=== PATIENT | male | born 1985 | race Caucasian/White ===

== ENCOUNTER 2021-09-04 03:47 | Emergency (ER) | payer OTHER, SELFPAY ==
--- NOTE | ~2021-09-04 | CT_ITS ---
EXAMINATION: CT HEAD WITHOUT CONTRAST CLINICAL INFORMATION: First seizure COMPARISON: None TECHNIQUE: Contiguous axial imaging was performed from the skull base to vertex without intravenous administration of contrast. This CT examination was performed using dose optimization techniques as appropriate, variously including the following: *Automated exposure control *Adjustment of mA and/or kV according to patient size (this includes techniques or standardized protocols for targeted exams where dose is matched to indication/reason for exam; i.e. extremities or head) *Use of iterative reconstruction technique DLP: 739 mGy-cm FINDINGS: There is no evidence of acute intracranial hemorrhage or territorial infarction. No abnormal mass effect or midline shift is seen. Garcia to white matter differentiation is well preserved. No extra-axial fluid collections are identified. The ventricles are normal in size. There is no abnormal attenuation within the brain parenchyma. Pilomatricomas within the right frontal parasagittal and suboccipital scalp.. The mastoid air cells and visualized portions of the paranasal sinuses are well aerated. CT/CT head/brain wo con IMPRESSION: No acute intracranial pathology. No intracranial mass is evident.
--- NOTE | 2021-09-04 03:52 | ED.SEIZURE ---
HPI - Seizure General Chief Complaint: Seizure Stated Complaint: seizure Time Seen by Provider: 09/04/21 03:52 Source: EMS Mode of arrival: EMS Limitations: no limitations History of Present Illness HPI Narrative: According to EMS he was violently shaking his arms and could not be woken up according to his . EMS found him tachycardic, diaphoretic, and agitated MD complaint: seizure Onset (ago): minute(s) Description of Episode: loss of consciousness and tonic-clonic movement Witnessed: Yes - by Other () Associated symptoms: confusion Related Data Allergies Allergy/AdvReac Type Severity Reaction Status Date / Time No Known Allergies Allergy Verified 09/04/21 03:58 Review of Systems Constitutional: Constitutional: Reports no additional constitutional complaints Eyes: Eyes: Reports no additional eye complaints ENT: Denies dizziness Cardiovascular: Cardiovascular: Reports no additional cardiovascular complaints Respiratory: Respiratory: Reports as per HPI Gastrointestinal: Gastrointestinal: Reports no additional gastrointestinal complaints Musculoskeletal: Musculoskeletal: Reports no additional musculoskeletal complaints Integumentary/Breasts: Skin/Breast: Denies rash Neurologic: Reports system reviewed and no additional complaints, except as documented, Denies dizziness and Denies Sensory deficit (Neuro) Psychiatric: Psychiatric: Denies anxiety Physical Exam Vital Signs: Vital Signs: Last Vital Signs Temp 98.6 F 09/04/21 03:53 Pulse 88 09/04/21 03:53 Resp 20 09/04/21 03:53 BP 125/87 09/04/21 03:53 Pulse Ox 95 09/04/21 03:53 O2 Del Method 09/04/21 03:53 BMI result Body Mass Index 39.1 Const: General: healthy appearing Nutritional Appearance: average body habitus Orientation/consciousness: oriented to person and patient oriented x3 Limitations: no limitations HEENT: Head: Yes normal to inspection Ears: external ears normal General nose exam: Normal external nose present Mouth: Normal oral and palatal mucosa present and oropharynx normal Throat: Yes posterior oropharynx normal Eyes: General: appearance normal, both eyes and all related structures Neck: Other: supple Neck: Yes normal visual inspection Chest: Chest palpation & inspection: normal inspection of the chest Resp: Auscultation: clear to auscultation bilaterally Cardio: Jugular venous distension: no JVD Rate: regular rate Rhythm: regular rhythm Heart sounds: S1 normal heart sound present and S2 normal heart sound present GI: Inspection: Yes normal to inspection Palpation (GI): Soft to palpation, nontender and No hepatosplenomegaly present Auscultation: normal bowel sounds : General: Yes no CVA tenderness Back/Spine/Pelvis: Back: no CVA tenderness Skin: General skin exam: no rashes or lesions noted Neuro: General: oriented to person and patient oriented x3 Cranial nerves: Yes CN's II-XII intact bilaterally Motor exam (neuro): 5/5 motor strength present throughout Sensory Exam: No Sensory deficit (Neuro) Extrem: General: Yes normal to inspection Psych: Appearance: grossly normal Course Reevaluation(s) Reevaluation #1: Patient with first seizure with negative work up, will not start seizure medication at this time, will discharge with follow up Time: 05:58 MDM - Seizure Lab Data Result diagrams: 09/04/21 04:09 09/04/21 04:09 Labs: Lab Results 09/04/21 09/04/21 09/04/21 Range/Units 04:09 04:09 04:09 WBC 8.4 (4.8-10.8) X10*3/uL RBC 4.77 (4.60-5.80) X10*6/uL Hgb 15.5 (14.0-18.0) g/dl Hct 45.5 (42.0-52.0) % MCV 95.4 (80.0-98.0) fL MCH 32.5 (27.0-33.0) pg MCHC 34.1 (31.0-36.0) g/dl RDW 12.4 (11.0-16.0) % Plt Count 226 (160-400) X10*3/uL MPV 11.0 (9.4-12.4) fL Immature Gran % (Auto) 1.4 H (0.0-0.4) % Neut % (Auto) 59.1 (45-73) % Lymph % (Auto) 30.2 (20-40) % [place] % (Auto) 6.2 (2-11) % Eos % (Auto) 2.7 (0-4) % Baso % (Auto) 0.4 (0-2) % Lymph # (Auto) 2.5 (1.2-4.9) X10*3/uL [place] # (Auto) 0.5 (0.1-1.2) X10*3/uL Eos # (Auto) 0.2 (0.0-0.4) X10*3/uL Baso # (Auto) 0.0 (0.0-0.2) X10*3/uL Abs Immat Gran (auto) 0.12 H (0.00-0.03) X10*3/uL Absolute Neuts (auto) 5.0 (2.0-8.3) x10*3/uL Absolute Nucleated RBC 0.000 (0.0-0.012) X10*3/uL Nucleated RBC % (auto) 0.0 (0.0-0.2) /100WBC Sodium 140 (135-145) mmol/L Potassium 3.4 (3.3-5.1) mmol/L Chloride 105 (96-108) mmol/L Carbon Dioxide 25 (22-29) mmol/L Anion Gap 13 (12-20) BUN 11 (9-16) mg/dL Creatinine 1.00 (0.5-1.4) mg/dL Estim Creat Clear Calc 120.4 Estimated GFR > 60 Random Glucose 102 (60-115) mg/dL Calcium 9.6 (8.4-10.2) mg/dL Ethyl Alcohol < 10 mg/dL Imaging Data CT scan - head: Radiologist's impression: FINDINGS: There is no evidence of acute intracranial hemorrhage or territorial infarction. No abnormal mass effect or midline shift is seen. Garcia to white matter differentiation is well preserved. No extra-axial fluid collections are identified. The ventricles are normal in size. There is no abnormal attenuation within the brain parenchyma. Pilomatricomas within the right frontal parasagittal and suboccipital scalp.. The mastoid air cells and visualized portions of the paranasal sinuses are well aerated. ? CT/CT head/brain wo con IMPRESSION: No acute intracranial pathology. No intracranial mass is evident. ECG Data Attestation: I personally reviewed and interpreted this ECG as follows: Interpretation: normal sinus rate of 80, no st or twave changes Discharge Plan Discharge Clinical Impression: Generalized seizure Patient Disposition: Home, Self-Care Instructions: Nonepileptic Seizures (ED) Referrals: Physician,Unknown J [Primary Care Provider] - 1 week
[2021-09-04 03:53] VITALS: BP 125/87; BP 136/99; PULSE 88; PULSE 90; RESP 20; TEMP 37; O2SAT 95; O2SAT 96; BMI 39.1
--- NOTE | 2021-09-04 03:55 | ECG_ITS ---
Test Reason : SEIZURE Blood Pressure : / mmHG Vent. Rate : 083 BPM Atrial Rate : 083 BPM P-R Int : 168 ms QRS Dur : 084 ms QT Int : 362 ms P-R-T Axes : 025 -15 009 degrees QTc Int : 425 ms Normal sinus rhythm Normal ECG No previous ECGs available Referred By: Ra Posey Electronically Signed By:Dangelo Wilson
[2021-09-04 04:14] LABS: MANUAL DIFF FLAG NO
[2021-09-04 04:15] LABS: Basophils Percent Auto 0.4 % (0-2); Eosinophils Absolute Auto 0.2 X10*3/uL (0.0-0.4); Eosinophils Percent Auto 2.7 % (0-4); Hematocrit 45.5 % (42.0-52.0); Hemoglobin 15.5 g/dl (14.0-18.0); Imm Gran Abs Auto 0.12 X10*3/uL (0.00-0.03); Imm Gran Pct Auto 1.4 % (0.0-0.4); Lymphocytes Absolute Auto 2.5 X10*3/uL (1.2-4.9); Lymphocytes Percent Auto 30.2 % (20-40); Mean Corpuscular HGB Conc 34.1 g/dl (31.0-36.0); Mean Corpuscular Hemoglobin 32.5 pg (27.0-33.0); Mean Corpuscular Volume 95.4 fL (80.0-98.0); Monocytes Absolute Auto 0.5 X10*3/uL (0.1-1.2); Monocytes Percent Auto 6.2 % (2-11); Neutrophils Percent Auto 59.1 % (45-73); Platelet Count 226 X10*3/uL (160-400); Red Blood Count 4.77 X10*6/uL (4.60-5.80); Red Cell Distribution Width 12.4 % (11.0-16.0); White Blood Count 8.4 X10*3/uL (4.8-10.8)
[2021-09-04 04:29] LABS: Ethanol < 10 mg/dL
[2021-09-04 04:32] LABS: Anion Gap 13 (12-20); Blood Urea Nitrogen 11 mg/dL (9-16); Calcium 9.6 mg/dL (8.4-10.2); Carbon Dioxide 25 mmol/L (22-29); Chloride 105 mmol/L (96-108); Creatinine Clr Calc Pharmacy 120.4; Estimated Glomerular Filt Rate > 60; Glucose Random 102 mg/dL (60-115); Potassium 3.4 mmol/L (3.3-5.1); Sodium 140 mmol/L (135-145)
[2021-09-04 06:15] VITALS: BP 124/75; PULSE 73; RESP 18; TEMP 36.6; O2SAT 95
== END 2021-09-04 06:20 | disposition home or self-care (01) ==
LOC: HO.ED 06:13
PROVIDERS: Emergency Provider Emergency Medicine
DX: G40.409 Other generalized epilepsy and epileptic syndromes, not intractable, without status epilepticus (principal); R00.0 Tachycardia, unspecified; R45.1 Restlessness and agitation
CPT/HCPCS: 36415; 70450; 80048; 82077; 85025; 93005; 99284

== ENCOUNTER 2021-10-28 02:29 | Emergency (ER) | payer OTHER, SELFPAY ==
--- NOTE | ~2021-10-28 | CT_ITS ---
Examination: CT shoulder LT wo con Indication: Possible dislocation Comparison: Plain films of the shoulder earlier today Technique: Multiple serial thin slice helical CT scan images through the left shoulder were obtained. Soft tissue and bony algorithms were performed. Coronal and sagittal reformatted images were then obtained on the technologist workstation. Contrast was not utilized DLP [address] examination was performed using dose optimization techniques as appropriate, variously including the following: *Automated exposure control *Adjustment of mA and/or kV according to patient size (this includes techniques or standardized protocols for targeted exams where dose is matched to indication/reason for exam; i.e. extremities or head) *Use of iterative reconstruction technique Findings: Slightly comminuted fracture of the anterior left humeral head identified. Fracture fragment is displaced somewhat anteriorly and inferiorly. The configuration could represent sequela of a reverse Hill-Sachs injury. The humeral head is otherwise currently well seated within the glenoid fossa with no persistent dislocation. No other fracture seen. Visualized left ribs are unremarkable. CT/CT shoulder LT wo con Impression: Comminuted fracture involving the anterior medial aspect of the humeral head. The configuration is somewhat unusual and could represent sequela of a reverse bony thorax injury in the setting of a previous posterior dislocation. The posterior labrum is not able to be assessed on the CT scan to assess for posterior Bankart type injury. I do not appreciate any residual dislocation at this time and the humeral head itself is now well seated within the glenoid fossa.
--- NOTE | ~2021-10-28 | XR_ITS ---
EXAMINATION: XR SHOULDER, LEFT CLINICAL INFORMATION: Trauma COMPARISON: None TECHNIQUE: Three views of the left shoulder. FINDINGS: No dislocation is evident. There appears to be a Hill-Sachs deformity. There is some calcification seen about the inferior aspect of the surgical neck and a nondisplaced impacted fracture is not excluded. XR/XR shoulder LT min 2V IMPRESSION: Question nondisplaced fracture proximal left humerus which would be age-indeterminate. Question previous dislocation with Hill-Sachs deformity.
[2021-10-28 02:46] VITALS: BP 142/96; BP 151/112; PULSE 102; PULSE 98; RESP 18; TEMP 36.3; O2SAT 94; O2SAT 95; BMI 39.1
[2021-10-28 02:55] VITALS: BP 168/98; PULSE 102; RESP 18; O2SAT 95
--- NOTE | 2021-10-28 06:49 | ED_ITS ---
HPI - Extremity Problem General Chief complaint: Extremity Injury, Upper Stated complaint: Seizure Time Seen by Provider: 10/28/21 06:45 History of Present Illness HPI Narrative: pt presented after seizure c/o left shoulder pain,he was sen in our ED 09/04 with first seizure and negative w/u.Seizure last 1 minute no post ictal at this time MD Complaint: extremity pain Onset (ago): hour(s) (4) Pain Consistency: constant Location: left and upper extremity Quality: aching Radiation: proximal Relieving factors: movement Exacerbating factors: range of motion Associated symptoms: denies other symptoms Related Data Previous Rx's Medication Instructions Recorded levetiracetam 500 mg tablet 500 mg PO BID #60 tabs 10/28/21 (Keppra) oxycodone 5 mg capsule 5 mg PO Q8H PRN pain #12 caps 10/28/21 oxycodone 5 mg tablet 5 mg PO Q6H PRN pain #12 tabs 10/28/21 Allergies Allergy/AdvReac Type Severity Reaction Status Date / Time No Known Allergies Allergy Verified 09/04/21 03:58 Review of Systems Review of Systems: Yes all other systems are reviewed and are negative Constitutional: Constitutional: Reports no additional constitutional complaints ENT: Reports system reviewed and no additional complaints, except as documented Gastrointestinal: Gastrointestinal: Reports no additional gastrointestinal complaints PMFSH Social History Social History Alcohol intake: current Alcohol intake frequency: 0-2 drinks per day Alcohol type: beer Patient Tobacco Use Status: Never used Tobacco Use of substances other than those prescribed or required for medical reasons: No Advance Directives: No Advance Directives Information Provided: No Physical Exam Vital Signs: Vital Signs: Last Vital Signs Temp 97.4 F 10/28/21 02:46 Pulse 102 H 10/28/21 02:55 Resp 18 10/28/21 02:55 BP 168/98 H 10/28/21 02:55 Pulse Ox 95 10/28/21 02:55 O2 Del Method 10/28/21 02:55 BMI result Body Mass Index 39.1 Const: General: cooperative and anxious Nutritional Appearance: average b yuliana habitus Orientation/consciousness: patient oriented x3 Limitations: no limitations HEENT: Head: Yes normal to inspection Ears: hearing grossly normal bilaterally General nose exam: Normal external nose present Face and sinus: Yes normal facial exam Mouth: Normal oral and palatal mucosa present Throat: Yes posterior oropharynx normal Neck: Neck: Yes normal visual inspection and Yes full ROM Chest: Chest palpation & inspection: normal inspection of the chest Resp: Effort & Inspection: normal respiratory effort and able to speak in complete sentences Auscultation: clear to auscultation bilaterally Cardio: Jugular venous distension: no JVD Rate: regular rate Rhythm: regular rhythm GI: Inspection: Yes normal to inspection Palpation (GI): Soft to palpation and nontender Skin: General skin exam: no rashes or lesions noted and elasticity normal Neuro: General: patient oriented x3 Extrem: Other: tenderness left shoulder ,decrease ROM Course Reevaluation(s) Reevaluation #1: discussed with radiologist Xray reas as no dislocation but I think he has post shoulder dislocation will do ct Reevaluation #2: ct showed comminuted fx but no dislocation spoke with Ortho [facility] will see pt in the office Regarding the seizure this is his #2 seizure will start on kepppra he has an appointment with neurologist in 1 Weeks at the [facility]. He already had ct head during his first visit for seizure. Pt and significative other confortable with the plan of care MDM - Extremity (Nontraumatic) Lab Data Result diagrams: 10/28/21 08:09 10/28/21 08:09 Labs: Lab Results 10/28/21 10/28/21 Range/Units 08:09 08:09 WBC 15.8 H (4.8-10.8) X10*3/uL RBC 4.91 (4.60-5.80) X10*6/uL Hgb 15.9 (14.0-18.0) g/dl Hct 46.5 (42.0-52.0) % MCV 94.7 (80.0-98.0) fL MCH 32.4 (27.0-33.0) pg MCHC 34.2 (31.0-36.0) g/dl RDW 12.5 (11.0-16.0) % Plt Count 238 (160-400) X10*3/uL MPV 11.3 (9.4-12.4) fL Immature Gran % (Auto) 0.5 H (0.0-0.4) % Neut % (Auto) 85.7 H (45-73) % Lymph % (Auto) 6.6 L (20-40) % [place] % (Auto) 6.8 (2-11) % Eos % (Auto) 0.1 (0-4) % Baso % (Auto) 0.3 (0-2) % Lymph # (Auto) 1.0 L (1.2-4.9) X10*3/uL [place] # (Auto) 1.1 (0.1-1.2) X10*3/uL Eos # (Auto) 0.0 (0.0-0.4) X10*3/uL Baso # (Auto) 0.0 (0.0-0.2) X10*3/uL Abs Immat Gran (auto) 0.08 H (0.00-0.03) X10*3/uL Absolute Neuts (auto) 13.5 H (2.0-8.3) x10*3/uL Absolute Nucleated RBC 0.000 (0.0-0.012) X10*3/uL Nucleated RBC % (auto) 0.0 (0.0-0.2) /100WBC Sodium 141 (135-145) mmol/L Potassium 3.6 (3.3-5.1) mmol/L Chloride 101 (96-108) mmol/L Carbon Dioxide 26 (22-29) mmol/L Anion Gap 18 (12-20) BUN 9 (9-16) mg/dL Creatinine 0.91 (0.5-1.4) mg/dL Estim Creat Clear Calc 132.3 Estimated GFR > 60 Random Glucose 103 (60-115) mg/dL Calcium 9.7 (8.4-10.2) mg/dL Magnesium 2.0 (1.6-2.6) mg/dL Total Bilirubin 1.5 H (0.0-1.0) mg/dL AST 31 (5-37) U/L ALT 58 H (0-40) U/L Alkaline Phosphatase 56 (39-117) U/L Total Protein 8.0 (6.5-8.0) g/dL Albumin 5.0 (3.5-5.0) g/dL Imaging Data left shoulder: Radiologist's impression: CLINICAL INFORMATION: Trauma? COMPARISON: None? TECHNIQUE: Three views of the left shoulder. FINDINGS: No dislocation is evident. There appears to be a Hill-Sachs deformity. There is some calcification seen about the inferior aspect of the surgical neck and a nondisplaced impacted fracture is not excluded.? XR/XR shoulder LT min 2V IMPRESSION: Question nondisplaced fracture proximal left humerus which would be age-indeterminate. Question previous dislocation with Hill-Sachs deformity. Dictated By: Daniel Soto MD Signed By: <Electronically signed by Daniel Soto MD in [place]> 10/28/[address] arm left: Radiologist's impression: DLP [address] examination was performed using dose optimization techniques as appropriate, variously including the following: *Automated exposure control *Adjustment of mA and/or kV according to patient size (this includes techniques or standardized protocols for targeted exams where dose is matched to indication/reason for exam; i.e. extremities or head) *Use of iterative reconstruction technique Findings: Slightly comminuted fracture of the anterior left humeral head identified. Fracture fragment is displaced somewhat anteriorly and inferiorly. The configuration could represent sequela of a reverse Hill-Sachs injury. The humeral head is otherwise currently well seated within the glenoid fossa with no persistent dislocation. No other fracture seen. Visualized left ribs are unremarkable. CT/CT shoulder LT wo con Impression: Comminuted fracture involving the anterior medial aspect of the humeral head. The configuration is somewhat unusual and could represent sequela of a reverse bony thorax injury in the setting of a previous posterior dislocation. The posterior labrum is not able to be assessed on the CT scan to assess for posterior Bankart type injury. I do not appreciate any residual dislocation at this time and the humeral head itself is now well seated within the glenoid fossa. Discharge Plan Discharge Clinical Impression: Fracture, humerus, Seizure Patient Disposition: Home, Self-Care Instructions: Arm Fracture in Adults (ED), Recurrent Seizures in Adults (ED) Additional Instructions: please do not drive x6 month follow-up with the neurologist, take Keppra as directed, follow-up with orthopedist as well keep the sling Prescriptions: New levetiracetam [Keppra] 500 mg tablet 500 mg PO BID Qty: 60 0RF oxycodone 5 mg capsule 5 mg PO Q8H PRN (Reason: pain) Qty: 12 0RF Rx Instructions: Partial Fill upon patient request. oxycodone 5 mg tablet 5 mg PO Q6H PRN (Reason: pain) Qty: 12 0RF Rx Instructions: Partial Fill upon patient request. Referrals: Robinson Mark MD [Physician] - Interventions: ED Discharge Assessment Last Done: 10/28/21 11:33 Discharge Date/Time: 10/28/21 11:36
[2021-10-28 08:13] LABS: MANUAL DIFF FLAG NO
[2021-10-28 08:18] LABS: Basophils Percent Auto 0.3 % (0-2); Eosinophils Percent Auto 0.1 % (0-4); Hematocrit 46.5 % (42.0-52.0); Hemoglobin 15.9 g/dl (14.0-18.0); Imm Gran Abs Auto 0.08 X10*3/uL (0.00-0.03); Imm Gran Pct Auto 0.5 % (0.0-0.4); Lymphocytes Percent Auto 6.6 % (20-40); Mean Corpuscular HGB Conc 34.2 g/dl (31.0-36.0); Mean Corpuscular Hemoglobin 32.4 pg (27.0-33.0); Mean Corpuscular Volume 94.7 fL (80.0-98.0); Mean Platelet Volume 11.3 fL (9.4-12.4); Monocytes Absolute Auto 1.1 X10*3/uL (0.1-1.2); Monocytes Percent Auto 6.8 % (2-11); Neutrophils Absolute Auto 13.5 x10*3/uL (2.0-8.3); Neutrophils Percent Auto 85.7 % (45-73); Platelet Count 238 X10*3/uL (160-400); Red Blood Count 4.91 X10*6/uL (4.60-5.80); Red Cell Distribution Width 12.5 % (11.0-16.0); White Blood Count 15.8 X10*3/uL (4.8-10.8)
[2021-10-28 08:52] LABS: Alanine Aminotransferase 58 U/L (0-40); Alkaline Phosphatase 56 U/L (39-117); Anion Gap 18 (12-20); Aspartate Amino Transferase 31 U/L (5-37); Bilirubin Total 1.5 mg/dL (0.0-1.0); Blood Urea Nitrogen 9 mg/dL (9-16); Calcium 9.7 mg/dL (8.4-10.2); Carbon Dioxide 26 mmol/L (22-29); Chloride 101 mmol/L (96-108); Creatinine Clr Calc Pharmacy 132.3; Estimated Glomerular Filt Rate > 60; Glucose Random 103 mg/dL (60-115); Potassium 3.6 mmol/L (3.3-5.1); Sodium 141 mmol/L (135-145)
== END 2021-10-28 11:36 | disposition home or self-care (01) ==
PROVIDERS: Emergency Provider Emergency Medicine
DX: R56.9 Unspecified convulsions (principal); S42.202A Unspecified fracture of upper end of left humerus, initial encounter for closed fracture; X58.XXXA Exposure to other specified factors, initial encounter; Y93.9 Activity, unspecified; Y92.9 Unspecified place or not applicable; Y99.9 Unspecified external cause status
CPT/HCPCS: 36415; 73030; 73200; 80053; 83735; 85025; 99284